=== PATIENT | male | born 1980 | race Hispanic/Latino ===

== ENCOUNTER 2022-04-07 13:05 | Emergency (ER) | payer OTHER ==
[~2022-04-07] VITALS: Ht 172.7 cm; Wt 124.7 kg
[2022-04-07 13:06] VITALS: BP 168/109
[2022-04-07] MEDS ORDERED: ACETAMINOPHEN 500 MG TABLET PO STA (13:18)
[2022-04-07] MEDS ORDERED: NAPR375T6 PO (13:45)
== END 2022-04-07 14:26 | disposition home or self-care (01) ==
LOC: EDH 13:05
DX: S96.912A Strain of unspecified muscle and tendon at ankle and foot level, left foot, initial encounter (principal); I10 Essential (primary) hypertension; Z98.890 Other specified postprocedural states; X50.1XXA Overexertion from prolonged static or awkward postures, initial encounter; Y93.89 Activity, other specified; Y92.89 Other specified places as the place of occurrence of the external cause; Y99.8 Other external cause status
CPT/HCPCS: 29515; 73610